=== PATIENT | male | born 2000 | race Caucasian/White ===

== ENCOUNTER 2018-03-23 06:03 | Emergency (ER) | payer OTHER ==
--- NOTE | 2018-03-23 06:19 | EDPHY ---
H & P Stated Complaint: concerned about mix of delia and xanax - no specific complaint Time Seen by Provider: 03/23/18 06:19 HPI/ROS: HPI CHIEF COMPLAINT: Xanax and Delia ingestion. HISTORY OF PRESENT ILLNESS: 17-year-old male otherwise healthy no significant medical history presents to the emergency room after ingesting the annex and Delia. Patient states he ingested this around 8:00 p.m. Last night. Decided come the emergency room this morning as he is feeling somewhat anxious and concerned the affects of the drugs. He denies any physical complaint. However is concerned about doing these drugs. Denies chest pain or shortness of breath. He does arrived to the emergency room has large people's, is noted to be tachycardic in the 140s. Denies any focal complaints. Appears somewhat anxious. Past Medical History: Denies Past Surgical History: Denies Social History: Delia and Xanax tonight. Family History: Noncontributory ROS REVIEW OF SYSTEMS: 10 Systems were reviewed and negative with the exception of the elements mentioned in the history of present illness. Exam Constitutional nontoxic no acute distress last somewhat anxious triage nursing summary reviewed, vital signs reviewed, awake/alert. Tachycardic at triage. Eyes normal conjunctivae and sclera, EOMI, PERRLA. HENT normal inspection, atraumatic, moist mucus membranes, no epistaxis, neck supple/ no meningismus, no raccoon eyes. Respiratory clear to auscultation bilaterally, normal breath sounds, no respiratory distress, no wheezing. Cardiovascular tachycardia 140s regular rhythm, no murmur, no edema, distal pulses normal. Gastrointestinal soft, non-tender, no rebound, no guarding, normal bowel sounds, no distension, no pulsatile mass. Genitourinary no CVA tenderness. Musculoskeletal no midline vertebral tenderness, full range of motion, no calf swelling, no tenderness of extremities, no meningismus, good pulses, neurovascularly intact. Skin pink, warm, & dry, no rash, skin atraumatic. Neurologic awake, alert and oriented x 3, AAOx3, moves all 4 extremities equally, motor intact, sensory intact, CN II-XII intact, normal cerebellar, normal vision, normal speech. Psychiatric somewhat anxious Heme/Lymph/Immune no lymphadenopathy. Differential Diagnosis: Includes but is not limited to in a particular order acute anxiety attack, panic attack, electrolyte disturbance, dehydration, drug ingestion, Xanax ingestion, Delia ingestion. Medical Decision Making: Plan for this patient IV establishment IV fluid bolus , basic blood work electrolytes. Re-evaluate. Re-evaluation: Patient re-evaluated this time resting comfortably. Heart rate down to 105. Electrolytes are appropriate. He feels much better with IV fluids. Resting comfortably without any complaints. At 7:25 a.m. He is eager for discharge. He denies any complaints and wants discharged from the emergency room. Source: Patient - Medical/Surgical History Hx Asthma: No Hx Chronic Respiratory Disease: No Hx Diabetes: No Hx Cardiac Disease: No Hx Renal Disease: No Hx Cirrhosis: No Hx Alcoholism: No Hx HIV/AIDS: No Hx Splenectomy or Spleen Trauma: No Other PMH: add - Social History Smoking Status: Current some day smoker Constitutional: Initial Vital Signs Temperature (C) 36.6 C 03/23/18 06:11 Heart Rate 149 H 03/23/18 06:11 Respiratory Rate 16 03/23/18 06:11 Blood Pressure 169/107 H 03/23/18 06:11 O2 Sat (%) 94 03/23/18 06:11 O2 Delivery Mode Room Air Allergies/Adverse Reactions: No Known Allergies Allergy (Unverified 03/23/18 06:17) Home Medications: Medication Instructions Recorded NK [No Known Home Meds] 03/23/18 Medical Decision Making - Data Points Laboratory Results: Laboratory Results 03/23/18 06:45 03/23/18 06:45 03/23/18 03/23/18 06:45 06:45 WBC 7.95 10^3/uL 10^3/uL (3.80-9.50) RBC 5.00 10^6/uL 10^6/uL (4.40-6.38) Hgb 16.0 g/dL g/dL (13.7-17.5) Hct 45.0 % % (40.0-51.0) MCV 90.0 fL fL (81.5-99.8) MCH 32.0 pg pg (27.9-34.1) MCHC 35.6 g/dL g/dL (32.4-36.7) RDW 12.1 % % (11.5-15.2) Plt Count 295 10^3/uL 10^3/uL (150-400) MPV 9.4 fL fL (8.7-11.7) Neut % (Auto) 66.1 % % (39.3-74.2) Lymph % (Auto) 24.5 % % (15.0-45.0) Traverse % (Auto) 7.9 % % (4.5-13.0) Eos % (Auto) 0.6 % % (0.6-7.6) Baso % (Auto) 0.6 % % (0.3-1.7) Nucleat RBC Rel Count 0.0 % % (0.0-0.2) Absolute Neuts (auto) 5.25 10^3/uL 10^3/uL (1.70-6.50) Absolute Lymphs (auto) 1.95 10^3/uL 10^3/uL (1.00-3.00) Absolute Monos (auto) 0.63 10^3/uL 10^3/uL (0.30-0.80) Absolute Eos (auto) 0.05 10^3/uL 10^3/uL (0.03-0.40) Absolute Basos (auto) 0.05 10^3/uL 10^3/uL (0.02-0.10) Absolute Nucleated RBC 0.00 10^3/uL 10^3/uL (0-0.01) Immature Gran % 0.3 % % (0.0-1.1) Immature Gran # 0.02 10^3/uL 10^3/uL (0.00-0.10) Sodium 142 mEq/L mEq/L (135-145) Potassium 3.7 mEq/L mEq/L (3.5-5.2) Chloride 108 mEq/L mEq/L (97-110) Carbon Dioxide 22 mEq/l mEq/l (22-31) Anion Gap 12 mEq/L mEq/L (6-14) BUN 15 mg/dL mg/dL (7-23) Creatinine 0.8 mg/dL mg/dL (0.7-1.3) Estimated GFR > 60 Glucose 94 mg/dL mg/dL (70-100) Calcium 9.6 mg/dL mg/dL (8.5-10.4) Medications Given: Discontinued Medications Sodium Chloride (Ns) 1,000 mls @ 0 mls/hr IV EDNOW ONE; Wide Open PRN Reason: Protocol Stop: 03/23/18 06:25 Last Admin: 03/23/18 06:49 Dose: 1,000 mls Sodium Chloride (Ns) 1,000 mls @ 0 mls/hr IV EDNOW ONE; Wide Open PRN Reason: Protocol Stop: 03/23/18 06:25 Last Admin: 03/23/18 06:50 Dose: 1,000 mls Departure - Departure Disposition: Home, Routine, Self-Care Clinical Impression: Polysubstance abuse Condition: Good Instructions: Polysubstance Abuse (ED), Anxiety (ED) Referrals: NONE *PRIMARY CARE P,. [Primary Care Provider] - As per Instructions
[2018-03-23] MEDS ORDERED: NS 1,000 ML IV ONE ×2 (06:24)
[2018-03-23 06:58] LABS: PLATELET COUNT 295 10^3/uL (150-400)
[2018-03-23 07:35] VITALS: BP 144/63
== END 2018-03-23 07:43 | disposition home or self-care (01) ==
DX: F19.10 Other psychoactive substance abuse, uncomplicated (principal); E86.9 Volume depletion, unspecified